=== PATIENT | male | born 1980 | race Caucasian/White ===

== ENCOUNTER 2024-02-17 14:31 | Emergency (ER) | payer SELFPAY | END 2024-02-17 15:55 | disposition home or self-care (01) | LOC: MW.ED 14:31 | DX: K04.7 Periapical abscess without sinus (principal) | CPT/HCPCS: 99282 ==

== ENCOUNTER 2024-03-15 10:35 | Emergency (ER) | payer SELFPAY | END 2024-03-15 11:58 | disposition home or self-care (01) | LOC: MW.ED 10:35 | DX: S00.83XA Contusion of other part of head, initial encounter (principal); K00.7 Teething syndrome; Z75.8 Other problems related to medical facilities and other health care; W22.8XXA Striking against or struck by other objects, initial encounter; Y99.0 Civilian activity done for income or pay; Y92.89 Other specified places as the place of occurrence of the external cause | CPT/HCPCS: 99283 ==